=== PATIENT | female | born 1990 | race African-American/Black ===

== ENCOUNTER 2018-05-22 19:34 | Emergency (ER) | payer MEDICAID ==
[~2018-05-22] VITALS: Ht 170.2 cm; Wt 56.7 kg
[2018-05-22] MEDS ORDERED: Amoxil400 MG/5 M PO (23:41)
== END 2018-05-22 23:57 | disposition home or self-care (01) ==
LOC: ER 19:34
DX: J02.9 Acute pharyngitis, unspecified (principal); R59.0 Localized enlarged lymph nodes; F17.210 Nicotine dependence, cigarettes, uncomplicated
CPT/HCPCS: 70491; 87081; 87147; 87430; 99284-25; J1100; Q9967

== ENCOUNTER → 2019-01-23 | Outpatient (CLI) | payer OTHER ==
[~2019-01-23] MED LIST: Amoxil400 MG/5 M PO
== END | disposition home or self-care (01) ==
LOC: LAB EV 15:19 → LAB SHORT 15:19
DX: S67.190A Crushing injury of right index finger, initial encounter (principal); S61.300A Unspecified open wound of right index finger with damage to nail, initial encounter
CPT/HCPCS: 87070; 87077; 87147; 87186; 87205

== ENCOUNTER 2024-03-28 14:53 | Emergency (ER) | payer OTHER ==
[~2024-03-28] VITALS: Ht 172.7 cm; Wt 58.1 kg
[2024-03-28 15:20] VITALS: BP 144/112
[2024-03-28 16:24] LABS: CORONAVIRUS COVID-19 AG Negative (NEGATIVE); INFLUENZA A AG Negative (NEGATIVE); INFLUENZA B AG Negative (NEGATIVE)
== END 2024-03-28 17:03 | disposition home or self-care (01) ==
LOC: ER 14:53
PROVIDERS: Physician Assistant
DX: B34.9 Viral infection, unspecified (principal); F17.210 Nicotine dependence, cigarettes, uncomplicated
CPT/HCPCS: 71045; 87428-QW; 99283-25